=== PATIENT | male | born 1970 | race Caucasian/White ===

== ENCOUNTER 2016-09-08 09:48 | Emergency (ER) | payer MEDICAID ==
[~2016-09-08] VITALS: Ht 175.2 cm; Wt 87.5 kg
[~2016-09-08 09:48] MED LIST: FLOMAX0.4 MG PO; HYDROCODONE BIT1 T11 PO; Motrin,Rufen800 MG PO; ZOFRAN ODT4 MG SL
[2016-09-08] MEDS ORDERED: WELLBUTRIN SR150 MG PO (09:59)
[2016-09-17] MEDS ORDERED: Motrin,Rufen800 MG PO ×2 (22:58→23:01)
[2016-09-17] MEDS ORDERED: Orphenadrine C100 MG PO ×2 (22:58→23:01)
[2016-09-17] MEDS ORDERED: PERCOCET 325 MG1 TA2 PO (22:58)
== END 2016-09-08 10:54 | disposition home or self-care (01) ==
LOC: ED 09:48
DX: S32.010A Wedge compression fracture of first lumbar vertebra, initial encounter for closed fracture (principal); S39.012A Strain of muscle, fascia and tendon of lower back, initial encounter; V49.9XXA Car occupant (driver) (passenger) injured in unspecified traffic accident, initial encounter; W22.10XA Striking against or struck by unspecified automobile airbag, initial encounter; Y93.89 Activity, other specified; Y92.413 State road as the place of occurrence of the external cause; Y99.9 Unspecified external cause status